=== PATIENT | female | born 1950 | race African-American/Black ===

== ENCOUNTER 2019-06-25 15:08 | Emergency (ER) | payer MEDICARE, MEDICAID ==
[~2019-06-25] VITALS: Ht 160 cm; Wt 70.0 kg
[2019-06-25] MEDS ORDERED: KETOROLAC 60MG/2ML VIAL IM ONE (18:30)
[2019-06-25] MEDS ORDERED: METHOCARBAMOL 750MG TABLET PO SCH (18:30)
[2019-06-25] MEDS ORDERED: ACETAMINOPHEN 500MG TABLET PO ONE (18:30)
[2019-06-25 19:31] VITALS: BP 138/78
== END 2019-06-25 19:36 | disposition home or self-care (01) ==
LOC: ER 15:08
DX: M54.41 Lumbago with sciatica, right side (principal); I10 Essential (primary) hypertension
CPT/HCPCS: 96372; 99283; J1885

== ENCOUNTER 2019-06-26 17:21 | Emergency (ER) | payer MEDICARE ==
[~2019-06-26] VITALS: Ht 165.1 cm; Wt 60.0 kg
[2019-06-26] MEDS ORDERED: KETOROLAC 60MG/2ML VIAL IM ONE (19:00)
[2019-06-26] MEDS ORDERED: ACETAMINOPHEN 325MG TABLET ONE (20:37)
[2019-06-26 20:41] VITALS: BP 147/82
[2019-06-26] MEDS ORDERED: ACETAMINOPHEN 325MG TABLET PO ONE (20:45)
== END 2019-06-26 20:44 | disposition home or self-care (01) ==
LOC: ER 17:21
DX: M54.5 Low back pain (principal); M79.604 Pain in right leg; I10 Essential (primary) hypertension
CPT/HCPCS: 73560; 96372; 99283; J1885; L1830